=== PATIENT | female | born 1990 | race Caucasian/White ===

== ENCOUNTER 2020-07-08 10:18 | Inpatient (IN) | payer BC ==
[~2020-07-08] VITALS: Ht 154.9 cm; Wt 66.4 kg
[2020-07-08] VITALS (14 sets, daily range): BP systolic 90–115; BP diastolic 46–64; PULSE 89–137; TEMP 97.7–101.9
[2020-07-08 11:38] LABS: COLLECTION METHOD CLEAN CATCH
[2020-07-08 11:47] LABS: MUCOUS Present /lpf; PH 7 (5-8); URINE APPEARANCE Hazy; URINE BACTERIA Moderate /hpf; URINE BILIRUBIN Negative (NEGATIVE); URINE BLOOD 1+ (NEGATIVE); URINE COLOR Yellow; URINE GLUCOSE Negative (NEGATIVE); URINE KETONE Trace (NEGATIVE); URINE LEUKOCYTE ESTERASE 3+ (NEGATIVE); URINE NITRATE Negative (NEGATIVE); URINE PROTEIN(semi-quant) Negative (NEGATIVE); URINE UROBILINOGEN Negative (NEGATIVE); URINE WBC >50 /hpf
[2020-07-08 14:37] LABS: ALBUMIN 3.4 gm/dL (3.5-5.0); BILIRUBIN,TOTAL 0.6 mg/dL (0.0-1.0); CALCIUM 8.4 mg/dL (8.4-10.2); CREATININE, serum 0.68 (0.52-1.25); POTASSIUM 3.7 mmol/L (3.4-5.0); TOTAL PROTEIN 6.2 gm/dL (6.4-8.2)
[2020-07-08 19:34] LABS: MEAN CELL VOLUME 101 fl (80.0-100.0); MEAN CORPUSCULAR HGB CONC 34 g/dl (33.0-37.0); MEAN PLATELET VOLUME 10.4 fl (7.4-10.4); PLATELET COUNT 188 K/mm3 (130-400); RED BLOOD COUNT 2.91 M/mm3 (4.10-5.30); REDCELL DISTRIBUTION WIDTH-CV 12.9 % (11.5-14.5)
[2020-07-08 19:41] LABS: HEMATOCRIT 29.3 % (37.0-47.0); HEMOGLOBIN 9.9 g/dl (12.5-16.0); MEAN CORPUSCULAR HEMOGLOBIN 34 pg (27.0-31.0)
[2020-07-09 06:00] VITALS: BP 91/34; PULSE 97; TEMP 97.6
[2020-07-09 06:17] LABS: MEAN CELL VOLUME 100 fl (80.0-100.0); MEAN CORPUSCULAR HGB CONC 34 g/dl (33.0-37.0); MEAN PLATELET VOLUME 10.1 fl (7.4-10.4); PLATELET COUNT 156 K/mm3 (130-400); RED BLOOD COUNT 2.68 M/mm3 (4.10-5.30); REDCELL DISTRIBUTION WIDTH-CV 13.2 % (11.5-14.5)
[2020-07-09 06:28] LABS: ALBUMIN 3.1 gm/dL (3.5-5.0); BILIRUBIN,TOTAL 0.3 mg/dL (0.0-1.0); CALCIUM 8.8 mg/dL (8.4-10.2); CREATININE, serum 0.52 (0.52-1.25); POTASSIUM 3.6 mmol/L (3.4-5.0); TOTAL PROTEIN 5.9 gm/dL (6.4-8.2)
[2020-07-09 06:31] LABS: HEMATOCRIT 26.9 % (37.0-47.0); MEAN CORPUSCULAR HEMOGLOBIN 34 pg (27.0-31.0)
[2020-07-09 12:00] VITALS: BP 89/41; PULSE 99; TEMP 97.7
[2020-07-09 19:45] VITALS: BP 113/56; PULSE 106; TEMP 97.8
[2020-07-10 01:15] VITALS: BP 100/47; PULSE 97; TEMP 97.5
[2020-07-10 05:15] VITALS: BP 98/50; PULSE 95; TEMP 98
[2020-07-10 07:04] LABS: MEAN CELL VOLUME 103 fl (80.0-100.0); MEAN CORPUSCULAR HGB CONC 33 g/dl (33.0-37.0); MEAN PLATELET VOLUME 10.7 fl (7.4-10.4); PLATELET COUNT 208 K/mm3 (130-400); RED BLOOD COUNT 2.77 M/mm3 (4.10-5.30); REDCELL DISTRIBUTION WIDTH-CV 13.3 % (11.5-14.5)
[2020-07-10 07:21] LABS: HEMATOCRIT 28.5 % (37.0-47.0); HEMOGLOBIN 9.3 g/dl (12.5-16.0); MEAN CORPUSCULAR HEMOGLOBIN 34 pg (27.0-31.0)
[2020-07-10 07:24] LABS: ALBUMIN 3.5 gm/dL (3.5-5.0); BILIRUBIN,TOTAL 0.2 mg/dL (0.0-1.0); CALCIUM 9.3 mg/dL (8.4-10.2); CREATININE, serum 0.49 (0.52-1.25); POTASSIUM 3.8 mmol/L (3.4-5.0); TOTAL PROTEIN 6.5 gm/dL (6.4-8.2)
[2020-07-10] MEDS ORDERED: FERROUS SU325 MG/TAB PO (09:08)
[2020-07-10] MEDS ORDERED: MACROBID 1100 MG/CAP PO (09:09)
[2020-07-10 09:37] LABS: COLLECTION METHOD CLEAN CATCH
[2020-07-10 09:44] LABS: MUCOUS Present /lpf; PH 7 (5-8); SQUAMOUS EPITHELIAL 0-2 /hpf; URINE APPEARANCE Hazy; URINE BACTERIA Rare /hpf; URINE BILIRUBIN Negative (NEGATIVE); URINE BLOOD Negative (NEGATIVE); URINE COLOR Yellow; URINE GLUCOSE Negative (NEGATIVE); URINE KETONE Trace (NEGATIVE); URINE LEUKOCYTE ESTERASE Negative (NEGATIVE); URINE NITRATE Negative (NEGATIVE); URINE PROTEIN(semi-quant) Negative (NEGATIVE); URINE RBC 0-2 /hpf; URINE UROBILINOGEN Negative (NEGATIVE)
== END 2020-07-10 11:25 | disposition home or self-care (01) | DRG 832 ==
LOC: LDRO 10:18 → LDR 10:25 → LDRO 14:59 → OB 15:00
PROVIDERS: ADMIT Student in an Organized Health Care Education/Training Program
DX: O23.03 Infections of kidney in pregnancy, third trimester (principal); O98.313 Other infections with a predominantly sexual mode of transmission complicating pregnancy, third trimester; N13.6 Pyonephrosis; O99.013 Anemia complicating pregnancy, third trimester; A63.0 Anogenital (venereal) warts; D64.9 Anemia, unspecified; Z3A.28 28 weeks gestation of pregnancy
CPT/HCPCS: J0696; J0702; J3105; J7120

== ENCOUNTER 2020-09-23 14:30 | Inpatient (IN) | payer BC ==
[~2020-09-23] VITALS: Ht 149.9 cm; Wt 70.0 kg
[~2020-09-23 14:30] MED LIST: FERROUS SU325 MG/TAB PO; MACROBID 1100 MG/CAP PO
[2020-09-25] VITALS (8 sets, daily range): BP systolic 109–153; BP diastolic 62–74; PULSE 75–93; TEMP 98.1
--- NOTE | 2020-09-25 18:55 | NUR ---
G1 at 40 weeks and 1 day arrives to unit ambulatory for scheduled induction of labor. Clean gown on. Pt oriented to room, bed in low and locked position, call light within reach. Pt reports feeling good movement, denies vaginal bleeding, LOF, or contractions. Pt states she has random [place] at times. US and toco explained and applied. Vital signs obtained. Admission assessment started. Vital signs obtained. SVE 1/50/-3, vertex position, membranes intact.
--- NOTE | 2020-09-25 19:20 | NUR ---
20G IV started in right forearm with 1 attempt. Admission labs obtained off IV start. Lactated Ringers infusing to gravity. Consents reviewed and signed with patient and spouse. All questions answered.
[2020-09-25 20:13] LABS: BASO % 0.3 % (0.0-2.0); EOS % 0.1 % (0-4.0); GRAN % 68.2 % (42.2-75.2); HEMATOCRIT 38.6 % (37.0-47.0); LYMPH # 3.5 (1.2-3.4); LYMPH % 26.1 % (20.0-51.0); MEAN CELL VOLUME 98 fl (80.0-100.0); MEAN CORPUSCULAR HEMOGLOBIN 33 pg (27.0-31.0); MEAN CORPUSCULAR HGB CONC 34 g/dl (33.0-37.0); MEAN PLATELET VOLUME 11.1 fl (7.4-10.4); MONO # 0.6 (0.1-0.6); MONO % 4.7 % (1.7-9.3); PLATELET COUNT 256 K/mm3 (130-400); RED BLOOD COUNT 3.95 M/mm3 (4.10-5.30); REDCELL DISTRIBUTION WIDTH-CV 12.9 % (11.5-14.5)
[2020-09-26] VITALS (64 sets, daily range): BP systolic 92–144; BP diastolic 50–85; PULSE 56–104; TEMP 97.7–98.4
--- NOTE | 2020-09-26 00:30 | NUR ---
Dr. Sultana at bedside. SVE /-2. Reviewing plan of care with patient. Verbal orders to not give another dose of cytotec due to frequent contractions and to start augmenting with pitocin now.
--- NOTE | 2020-09-26 03:23 | NUR ---
0300 - Pt requesting epidural at this time. Lyle Saul CRNA called, will come to bedside. 0315 - Pt positioned to sitting on edge of bed. Brian WHEELER at bedside. Epidural procedure, risks, and benefits reviewed with patient, pt verbalized understanding. 0323 - Single shot by SUMMER Torres at this time. Pt denies any adverse reactions. 0330 - Pt positioned to wedge right for comfort. Safety precautions reviewed. Bed in low and locked position, call light within reach. See anesthesia record.
--- NOTE | 2020-09-26 03:40 | NUR ---
0335 - Prolonged deceleration down to 70 bpm for about 5 minutes before returning to baseline. Position changes made, fluid bolus started, pitocin off, oxygen on. SVE 1/80/-2. BP 108/55. 0342 - FHR baseline 140s 0350 - Recurrent late decelerations down to 100 - 120 bpm x 5. Pt repositioned to wedge right. Updated on plan of care.
--- NOTE | 2020-09-26 04:30 | NUR ---
Kaur catheter placed at this time to dependent drainage. Clear, yellow urine returned. Secured to leg with statlock. SVE /-.
--- NOTE | 2020-09-26 07:25 | NUR ---
Bilateral side lying hip release.
--- NOTE | 2020-09-26 08:29 | NUR ---
Dr. Sultana to bedside. POC reviewed with sky and SO. AROM at this time for mod amount clear fluids. SVE by provider . Ria care and patient left lateral. Recurrent lates noted. Moderate variability. Patient wedge right. Will continue to monitor.
--- NOTE | 2020-09-26 09:30 | NUR ---
Patient reports increased rectal pressure. SVE /-1. Patient instructed on when to call RN.
--- NOTE | 2020-09-26 09:54 | NUR ---
0954- Recurrent late decels. Patient wedge left. 0955- Recurrent lates continue. Pitocin off. LR bolus initiated. High left lateral. 1000- FHR 70bpm. O2 applied. Dr. Sultana updated and requsted at bedside. Patient right lateral. 1004- FHR 140's, moderate variability. Dr. Sultana updated. Patient updated on POC.
--- NOTE | 2020-09-26 11:00 | NUR ---
1100- SVE 0. Pitocin resumed per orders. 1110- Recurrent lates. Patient left and right lateral. Pitocin off. LR bolus. O2 on via mask. Dr. Sultana updated.
--- NOTE | 2020-09-26 14:48 | NUR ---
1448- Patient instructed on pushing with ctx. Verbalizes understanding. Patient repostioned in stirrups and begins to push with ctx with RN at beside. Strong maternal effort. Moves vertex well. 1455- FHR noted to be 160's with recurrent lates. Dr. Sultana notified and requsted to bedside. See physician notification. 1503- Dr. Sultana to bedside. Reviews strips. Patient continues to push with contractions with Dr. Sultana at bedside. Strong maternal effort. Moves vertex well. 1505- Pitocin to 2mu per Dr. Browning orders. 1532- FHR tracing intermittently. FHR audible in 70's. Pulse ox for maternal HR. 1536- FHR continues to trace intermittenly. FHR audible in 70's. Noted to be 70's per EFM. Dr. Sultana discusses VAVD and MLE with patient who agrees. 1542- Patient continues to push with contractions, moves vertex well. Delivery of head at this time. 40 seconds shoulder dystocia. See doctor dictation. To mother's chest where cord clamped x2 and cut by Dr. Sultana. To warmer. Care of assumed by Charlotte Cazares RN. Pitocin paused. 1546- Spontaneous and intact delivery of placenta. Pitocin resumed at 333ml/hr per protocol. Repair of 2nd degree laceration by Dr. Sultana. 1550- Fundus firm, midline and bleeding minimal. Ria care provided. Pads changed, and ice pack to perineum. Plan of care and safety precautions reviewed with patient and spouse who verbalize understanding. See doctor dictation, anesthesia record, and nurses notes.
[2020-09-27 04:35] VITALS: BP 96/54; PULSE 69; TEMP 97.8
[2020-09-27 07:50] VITALS: BP 102/49; PULSE 66; TEMP 97.7
[2020-09-27] MEDS ORDERED: IBU800 M1 PO (07:50)
[2020-09-27 12:30] VITALS: BP 110/62; PULSE 85; TEMP 97.8
[2020-09-27 15:55] VITALS: BP 114/70; PULSE 110; TEMP 97.9
[2020-09-27 20:30] VITALS: BP 117/70; PULSE 77; TEMP 98.1
[2020-09-28 07:20] VITALS: BP 104/61; PULSE 65; TEMP 97.3
--- NOTE | 2020-09-28 10:04 | NUR ---
Initial visit; Parents thanked Wood Technologist for offering congratulations and God's blessings for the of their son. Wood Technologist thanked family for choosing [facility].
--- NOTE | 2020-09-28 14:19 | NUR ---
IN TO NURSERY TO HOLD AND FEED INFANT. UPDATED ON 'S POC.
== END 2020-09-28 15:45 | disposition home or self-care (01) | DRG 806 ==
LOC: LDR 14:30 → OB 09-26 20:00
PROVIDERS: ADMIT Student in an Organized Health Care Education/Training Program
PROC: 3E0P7VZ Introduction of Hormone into Female Reproductive, Via Natural or Artificial Opening (ICD-10-PCS; 2020-09-25)
PROC: 3E033VJ Introduction of Other Hormone into Peripheral Vein, Percutaneous Approach (ICD-10-PCS; 2020-09-25)
PROC: 10E0XZZ Delivery of Products of Conception, External Approach (ICD-10-PCS; principal; 2020-09-26)
PROC: 0KQM0ZZ Repair Perineum Muscle, Open Approach (ICD-10-PCS; 2020-09-26)
PROC: 10907ZC Drainage of Amniotic Fluid, Therapeutic from Products of Conception, Via Natural or Artificial Opening (ICD-10-PCS; 2020-09-26)
DX: O99.892 Other specified diseases and conditions complicating childbirth (principal); O98.32 Other infections with a predominantly sexual mode of transmission complicating childbirth; Z37.0 Single live birth; O48.0 Post-term pregnancy; O66.0 Obstructed labor due to shoulder dystocia; O70.1 Second degree perineal laceration during delivery; A60.09 Herpesviral infection of other urogenital tract; N20.0 Calculus of kidney; Z20.822 Contact with and (suspected) exposure to COVID-19; Z3A.40 40 weeks gestation of pregnancy
CPT/HCPCS: J2590; J2795; J7120